=== PATIENT | female | born 1995 | race Caucasian/White ===

== ENCOUNTER 2016-11-19 13:14 | Emergency (ER) | payer SELFPAY ==
[~2016-11-19] VITALS: Ht 152.4 cm; Wt 94.6 kg
[2016-11-19 13:15] VITALS: BP 135/76
== END 2016-11-19 13:43 | disposition home or self-care (01) ==
LOC: ED 13:20
DX: A60.04 Herpesviral vulvovaginitis (principal)
CPT/HCPCS: 99283